=== PATIENT | female | born 1930 | race Asian ===

== ENCOUNTER 2019-04-25 08:36 | Day surgery (SDC) | payer OTHER ==
[~2019-04-25] VITALS: Ht 154.9 cm; Wt 61.2 kg
[2019-04-25 09:15] VITALS: BP 133/67
[2019-04-25 12:37] VITALS: BP 136/70
== END 2019-04-25 11:55 | disposition home or self-care (01) ==
LOC: GI 08:36 → OR 10:30 → GI 10:30 → OR 11:15 → GI 11:55
DX: R19.7 Diarrhea, unspecified (principal); K59.00 Constipation, unspecified; K57.30 Diverticulosis of large intestine without perforation or abscess without bleeding; Z79.899 Other long term (current) drug therapy; Z79.84 Long term (current) use of oral hypoglycemic drugs; Z90.710 Acquired absence of both cervix and uterus; Z90.49 Acquired absence of other specified parts of digestive tract
CPT/HCPCS: 45378; J1200; J1610; J2250; J2310; J3010; J3490